=== PATIENT | female | born 1990 | race Caucasian/White ===

== ENCOUNTER → 2016-08-30 | Outpatient (REF) | payer OTHER ==
[~2016-08-30] MED LIST: ACET50TA PO; IBUP60TA PO
[2016-08-30 13:54] LABS: MEAN CORPUSCULAR HEMOGLOBIN 30.3 pg (27.0-33.0); MEAN CORPUSCULAR HGB CONC 34.7 g/dl (32.0-36.5); MEAN CORPUSCULAR VOLUME 87.4 fl (80.0-96.0); RED CELL DISTRIBUTION WIDTH 12.3 % (11.5-14.5); WHITE BLOOD COUNT 5.7 K/mm3 (4.0-10.0)
[2016-08-30 14:07] LABS: HCG, SERUM QUANTITATIVE 892 MIU/ML
[2016-08-30 14:23] LABS: CONTROL LINE INT CTR LINE PRESENT; HIV SCRN NEGATIVE (NEGATIVE); HIV SCRN1 NEGATIVE (NEGATIVE)
[2016-08-31 10:25] LABS: HEPATITIS B SURFACE ANTIBODY POSITIVE (POSITIVE)
[2016-08-31 10:28] LABS: HBsAg Prenatal NEGATIVE (NEGATIVE)
== END ==
LOC: M LAB REF 13:02
PROVIDERS: ATTEND Obstetrics & Gynecology
DX: O36.80X0 Pregnancy with inconclusive fetal viability, not applicable or unspecified (principal)

== ENCOUNTER → 2016-11-21 | Outpatient (REF) | payer OTHER | LOC: M LAB REF 17:19 | PROVIDERS: ATTEND Obstetrics & Gynecology | DX: Z31.430 Encounter of female for testing for genetic disease carrier status for procreative management (principal); Z3A.00 Weeks of gestation of pregnancy not specified ==

== ENCOUNTER → 2017-02-05 | Outpatient (CLI) | payer BC, OTHER ==
[~2017-02-05] MED LIST changes: +IBUP-1114 PO; +NORC1TAB4 PO; +PRENTAB9 PO
[2017-02-05 13:34] LABS: MEAN CORPUSCULAR HEMOGLOBIN 30.7 pg (27.0-33.0); MEAN CORPUSCULAR HGB CONC 34.7 g/dl (32.0-36.5); MEAN CORPUSCULAR VOLUME 88.3 fl (80.0-96.0); RED CELL DISTRIBUTION WIDTH 13.6 % (11.5-14.5); WHITE BLOOD COUNT 12.3 K/mm3 (4.0-10.0)
== END ==
LOC: M LAB 11:06
PROVIDERS: ATTEND Obstetrics & Gynecology
DX: Z34.82 Encounter for supervision of other normal pregnancy, second trimester (principal)

== ENCOUNTER 2017-04-01 05:06 | Inpatient (IN) | payer BC, OTHER ==
[2017-04-01] VITALS (18 sets, daily range): BP systolic 97–118; BP diastolic 52–80
[~2017-04-01] VITALS: Ht 165.1 cm; Wt 79.0 kg
[~2017-04-01 05:06] MED LIST changes: -IBUP-1114 PO; -NORC1TAB4 PO; -PRENTAB9 PO
[2017-04-01] MEDS ORDERED: PRENTAB9 PO (05:30)
[2017-04-01] MEDS: BETAMETHASONE SOLUSPAN 6MG/ML INJ 5ML (J0702) IM SCH (05:50)
[2017-04-01 06:23] LABS: MEAN CORPUSCULAR HEMOGLOBIN 30.9 pg (27.0-33.0); MEAN CORPUSCULAR HGB CONC 36.1 g/dl (32.0-36.5); MEAN CORPUSCULAR VOLUME 85.5 fl (80.0-96.0); WHITE BLOOD COUNT 10.4 K/mm3 (4.0-10.0)
[2017-04-01] MEDS ORDERED: LACTATED RINGER'S 1000 ML IV STA (09:34)
[2017-04-01 12:09] LABS: MEAN CORPUSCULAR HEMOGLOBIN 30.7 pg (27.0-33.0); MEAN CORPUSCULAR HGB CONC 35.5 g/dl (32.0-36.5); MEAN CORPUSCULAR VOLUME 86.4 fl (80.0-96.0); RED CELL DISTRIBUTION WIDTH 13.9 % (11.5-14.5); WHITE BLOOD COUNT 11.4 K/mm3 (4.0-10.0)
[2017-04-01] MEDS: LR 1,000 ML IV SCH (12:17)
[2017-04-02] VITALS (16 sets, daily range): BP systolic 85–123; BP diastolic 52–74
[2017-04-02] MEDS: BETAMETHASONE SOLUSPAN 6MG/ML INJ 5ML (J0702) IM SCH (05:42)
[2017-04-02] MEDS: LR 1,000 ML IV SCH ×2 (09:32→18:09)
[2017-04-02 11:22] LABS: BASO % 0.2 % (0.0-1.0); EOS % 0.2 % (0.0-3.0); LARGE UNSTAINED CELL # 0.1 K/mm3 (0.0-0.4); LARGE UNSTAINED CELL % 0.5 % (0.0-4.0); LYMPH # 1.2 K/mm3 (1.5-6.5); LYMPH % 6.8 % (24.0-44.0); MEAN CORPUSCULAR HEMOGLOBIN 30.4 pg (27.0-33.0); MEAN CORPUSCULAR HGB CONC 35.2 g/dl (32.0-36.5); MEAN CORPUSCULAR VOLUME 86.3 fl (80.0-96.0); MONO # 0.3 K/mm3 (0.0-0.8); MONO % 1.8 % (0.0-5.0); NEUTROPHILS # 14.5 K/mm3 (1.8-7.7); NEUTROPHILS % 90.5 % (36.0-66.0); PLATELET COUNT, AUTOMATED 133 k/mm3 (150-450); RED CELL DISTRIBUTION WIDTH 14.1 % (11.5-14.5)
[2017-04-02] MEDS ORDERED: BICITRA 30ML SOLN UDC PO ONE (14:15)
--- NOTE | 2017-04-02 15:11 | REP ---
OBSTETRIC SONOGRAPHY: HISTORY: Complete previa, question abruptio. For amniotic fluid assessment and estimated weight. FINDINGS: Scanning through the gravid uterus demonstrates a viable single intrauterine gestation in a cephalic lie. motion is observed, and heart rate is recorded at 139 beats per minute. Amniotic fluid is subjectively low. Amniotic fluid index is low as well at 4.8 cm (7.8 to 24.9 cm). No extrauterine abnormalities observed. The placenta is posterior and difficult to evaluate for previa due to advanced gestational age and low head. Per referring provider's request, the exam was not done transvaginally. No abruption is visible. The cervix could not be visualized due to low head position. Umbilical cord is seen draping across the shoulders. The following anatomic structures are identified today and felt to be unremarkable: cranium, cavum, lungs, four-chamber heart, right ventricular outflow tract view, diaphragm, left-sided stomach, three-vessel cord, kidneys and bladder, spine. The following additional anatomic structures are less than optimally seen: Choroid plexus, cerebellum and posterior fossa, face and profile, left ventricular cardiac outflow tract view, abdominal wall cord insertion, upper and lower extremities. BIOMETRY CHART: BPD 7.9 cm = 31 weeks 5 days Head circumference 30.1 cm = 33 weeks 3 days Abdominal circumference 32.9 cm = 36 weeks 6 days Femur length 7.0 cm = 36 weeks 1 day Humeral length 6.1 cm = 35 weeks 2 days HC/AC ratio 0.92 (0.93 to 1.12. Cephalic index normal 0.72. Estimated weight 2733 grams, 6 pounds 0 ounces, 54th percentile for 35 weeks 3 days. IMPRESSION: Viable single intrauterine gestation at 34 weeks 5 days by today's composite sonographic criteria. FABY by today's sonography 05/09/2017. cervix, lower uterine segment, and placenta less than optimally seen due to low head position. No abruption is seen. Difficult to evaluate for previa. Signed by Scott Nielsen MD 04/02/2017 04:36 P
[2017-04-02] MEDS ORDERED: ONDANSETRON 4MG/2ML VIAL (J2405) IV PRN ×3 (17:24→18:45)
[2017-04-02] MEDS ORDERED: NALOXONE INJ 0.4 MG/1 ML VIAL (J2310) IV PRN ×2 (17:24)
[2017-04-02] MEDS ORDERED: METOCLOPRAMIDE INJ 10MG/2ML VIAL (J2765) IV PRN (17:24)
[2017-04-02] MEDS ORDERED: NALBUPHINE HCL 10 MG/ML AMP (J2300) IV PRN ×2 (17:24→18:45)
[2017-04-02] MEDS ORDERED: MORPHINE PRES-FREE INJ 10 MG/10 ML VIAL (J2274) As Ordered ONE (17:28)
[2017-04-02] MEDS ORDERED: OXYTOCIN INJ 10 UNITS/ML VIAL (J2590) As Ordered ONE (17:28)
[2017-04-02] MEDS ORDERED: ONDANSETRON 4MG/2ML VIAL (J2405) As Ordered ONE (17:32)
[2017-04-02] MEDS ORDERED: PHENYLephrine HCL 500 MCG/5 ML (100MCG/ML) SYRINGE (J2370) As Ordered ONE (17:42)
[2017-04-02] MEDS ORDERED: KETOROLAC 60 MG/2 ML VIAL (J1885) As Ordered ONE (17:43)
[2017-04-02 17:58] LABS: CORD GAS HCO3 A 20.8 MEQ/L; CORD GAS O2 SAT A 49.5 %; CORD GAS PCO2 A 45.6 mmHg; CORD GAS PH A 7.278 UNITS; CORD GAS PO2 A 22.5 mmHg; CORD GAS SBC A 18.5 MEQ/L; CORD GAS TCO2 A 22.2 MEQ/L
[2017-04-02 18:00] LABS: CORD GAS ABE V -8.4; CORD GAS HCO3 V 16.2 MEQ/L; CORD GAS O2 SAT V 66.8 %; CORD GAS PCO2 V 31.8 mmHg; CORD GAS PH V 7.326 UNITS; CORD GAS PO2 V 27.2 mmHg; CORD GAS SBC V 17.2 MEQ/L; CORD GAS TCO2 V 17.2 MEQ/L
[2017-04-02] MEDS ORDERED: MEASLES,MUMPS,RUBELLA VACCINE INJ (MMR-II) (90707) SC SCH (18:15)
[2017-04-02] MEDS ORDERED: RHOGAM 300 MCG (1500 IU) INJ (J2790) IM SCH (18:15)
[2017-04-02] MEDS ORDERED: METHYLERGONOVINE MALEATE 0.2 MG TAB PO PRN (18:15)
[2017-04-02] MEDS ORDERED: NORCO, ANEXSIA 5/325MG TABLET (HYDROcodone/ACETAMINOPHEN) PO PRN (18:15)
[2017-04-02] MEDS ORDERED: DOCUSATE SODIUM 100 MG CAP PO PRN (18:15)
--- NOTE | 2017-04-02 18:38 | HPE ---
DATE OF ADMISSION: 04/02/2017 Joyce is a 26-year-old female 3, para 1-0-1-0 with an estimated date of confinement (EDC) of 05/05/2017, estimated gestational age (EGA) 35-2/7 weeks gestation with a longstanding history of complete placenta previa. She presented yesterday with acute bleeding, was monitored for the bleeding but given two doses of steroids. She continued to bleed. At this point, a decision was made for admission. Her record reviewed, essentially unremarkable other than the history of complete previa. No bleeding up until this admission. LAB: Blood type is B+, rubella immune, hepatitis negative, HIV negative, GC chlamydia negative. One-hour sugar testing was within normal limits. GBS status unknown. PAST MEDICAL HISTORY: Denies. PAST SURGICAL HISTORY: Ectopic times one. SOCIAL HISTORY: She is , lives with her . Denies any alcohol, drugs or cigarette smoking. REVIEW OF SYSTEMS: Unremarkable. OBSTETRICAL HISTORY: Full term vaginal delivery with from [facility] PHYSICAL EXAMINATION ON ADMISSION: HEENT: Grossly within normal limits. Abdomen: Soft, nontender, nondistended. Extremities: No clubbing, cyanosis or edema. Vaginal exam: Gross bleeding with a small clot coming out of vagina. No digital exam done. Tracing reviewed. Category one tracing with irregular contractions. ASSESSMENT: 1. Intrauterine at 35-2/7 weeks gestation. 2. History of complete placenta previa. 3. Acute bleeding. 4. Thrombocytopenia. PLAN: Admit the patient to labor and delivery, intravenous (IV) fluid hydration started, sequential labs sent. Will continue to monitor the patient. If her bleeding persists, will proceed with a primary section. Copy To: [facility]
[2017-04-02] MEDS ORDERED: fentaNYL 100 MCG/2 ML INJECTION (J3010) IV PRN (18:45)
[2017-04-02] MEDS ORDERED: MEPERIDINE INJ 25 MG/ML VIAL (J2175) IV PRN (18:45)
[2017-04-02] MEDS ORDERED: PERCOCET 5MG/325MG TAB PO PRN (18:45)
[2017-04-02] MEDS ORDERED: LR 1,000 ML IV SCH (18:45)
[2017-04-02] MEDS: KETOROLAC 30 MG/ML VIAL (J1885) IV SCH (21:08)
[2017-04-03] VITALS (7 sets, daily range): BP systolic 92–111; BP diastolic 57–71
[2017-04-03] MEDS: KETOROLAC 30 MG/ML VIAL (J1885) IV SCH ×4 (00:01→17:34)
[2017-04-03] MEDS: LR 1,000 ML IV SCH (02:28)
[2017-04-03 06:52] LABS: MEAN CORPUSCULAR HEMOGLOBIN 32.4 pg (27.0-33.0); MEAN CORPUSCULAR VOLUME 86.8 fl (80.0-96.0); RED CELL DISTRIBUTION WIDTH 13.8 % (11.5-14.5); WHITE BLOOD COUNT 14.6 K/mm3 (4.0-10.0)
[2017-04-03 06:56] LABS: MEAN CORPUSCULAR HGB CONC 36.5 g/dl (32.0-36.5)
[2017-04-03] MEDS: PRENATAL VITAMINS CHEWABLE TABLET PO SCH (07:29)
--- NOTE | 2017-04-03 08:19 | RO ---
DATE OF PROCEDURE: 04/02/2017 PREPROCEDURE DIAGNOSES: 1. Intrauterine at 35-2/7 weeks gestation. 2. Complete placenta previa. 3. Acute bleeding. 4. Oligohydramnios. 5. Thrombocytopenia. POSTPROCEDURE DIAGNOSES: 1. Intrauterine at 35-2/7 weeks gestation. 2. Complete placenta previa. 3. Acute bleeding. 4. Oligohydramnios. 5. Thrombocytopenia. 6. Nuchal cord times one. PROCEDURE: Primary low transverse section. SURGEON: Dr. Branden Scott. GEAR LAPPING MACHINE OPERATOR: Missy Maharaj. ANESTHESIA: Spinal. ESTIMATED BLOOD LOSS: COMPLICATION: None. Joyce is a 26-year-old female 3, para 0, para 1-0-1-0 who was admitted at 35-2/7 weeks gestation with acute bleeding with a diagnosis of complete placenta previa. She was found to have oligohydramnios on ultrasound as well as thrombocytopenia on labs. Given the above findings and the acute bleeding and the patient being status post two doses of steroids, decision was made to proceed with section. FINDINGS: Live male in occiput transverse position with nuchal cord times one. 9 and 9. weight 6 pounds 9 ounces. Normal appearing placenta previa noted covering the cervical os. Placenta was posterior. PROCEDURE: After obtaining informed consent, the patient was taken to the operating room where spinal anesthetic was found to be adequate. She was then draped and prepped in usual sterile fashion in supine position. At this point, Pfannenstiel incision was made. This was carried down to the fascia. Fascia was incised in midline fashion and carried through laterally. Superior aspect of the fascia was then grasped with Mau clamps, tented off and dissected off the rectus muscles sharply. The inferior aspect was dissected off in similar fashion. Rectus muscles in midline fashion. Perineum identified. Peritoneal cavity entered bluntly. Superior and inferior dissection of peritoneum was then done with good visualization of the bladder. At this point, a Mobius skin retractor was placed. A low-transverse uterine incision was made. was delivered in an atraumatic fashion. The nuchal cord was reduced. Infant was handed over to the waiting clothing manager. Cord blood and cord gas were sent. Placenta removed manually. Uterus cleared of all clot and debris and uterine incision was then repaired in two separate layers of #0 Vicryl sutures. Pelvis copiously irrigated with normal saline and suctioned out. Attention turned to the peritoneum which was closed in running fashion using #2-0 Vicryl. All superficial bleeders coagulated. Fascia closed in two separate segment of #0 Vicryl sutures. The skin was reapproximated in subcuticular fashion using #3-0 Vicryl and a Daniel. Steri-Strips placed. The patient tolerated the procedure well. She was then transferred to recovery room in stable condition.
[2017-04-03] MEDS: NORCO, ANEXSIA 5/325MG TABLET (HYDROcodone/ACETAMINOPHEN) PO PRN (09:29)
[2017-04-04] MEDS: IBUPROFEN 800 MG TAB PO SCH ×3 (02:44→18:12)
[2017-04-04 06:26] VITALS: BP 99/61
[2017-04-04] MEDS ORDERED: INFLUENZA QUADRIVALENT PF VACCINE 0.5ML SYRINGE (90686) IM ONE (09:00)
[2017-04-04] MEDS: PRENATAL VITAMINS CHEWABLE TABLET PO SCH (09:30)
[2017-04-04 18:39] VITALS: BP 103/82
[2017-04-05] MEDS: IBUPROFEN 800 MG TAB PO SCH ×2 (02:15→09:39)
[2017-04-05] MEDS: NORCO, ANEXSIA 5/325MG TABLET (HYDROcodone/ACETAMINOPHEN) PO PRN (05:56)
[2017-04-05 05:58] VITALS: BP 106/69
[2017-04-05] MEDS: PRENATAL VITAMINS CHEWABLE TABLET PO SCH (08:30)
[2017-04-05] MEDS ORDERED: NORC1TAB4 PO (09:23)
[2017-04-05] MEDS ORDERED: IBUP-1114 PO (09:23)
[2017-04-05] MEDS ORDERED: PRENTAB9 PO (09:23)
--- NOTE | 2017-04-05 11:25 | DS.PDOC ---
Discharge Summary General Date of Admission Apr 01, 2017 at 09:34 Date of Discharge April 05, 2017. Attending Physician: Branden Scott DO Discharge Summary PROCEDURES PERFORMED DURING STAY: Primary low transverse section. ADMITTING DIAGNOSES: 1. IUP at 35.2 weeks gestation. 2. Complete previa. 3. Acute bleeding. 4. Oligohydramnios 5. Thrombocytopenia DISCHARGE DIAGNOSES: 1. Day 3 postoperative COMPLICATIONS/CHIEF COMPLAINT: Bleeding. HISTORY OF PRESENT ILLNESS: Patient is a 26 year old female who is now a . She has had good care and initiated her care in the first trimester of her . Her has been complicated by a complete previa. She was admitted into the hospital with acute vaginal bleeding. It was noted while patient was admitted that she had thrombocytopenia and oligohydramnios. She received 2 doses of betamethasone for lung maturity. Due to patient's status the decision was made to proceed with the planned section. DISCHARGE MEDICATIONS: Please see below. ALLERGIES: Please see below. PHYSICAL EXAMINATION ON DISCHARGE: VITAL SIGNS: Please see below. GENERAL: Alert and oriented times 3 RESPIRATORY EXAMINATION: Regular rate and rhythm. No use of accessory muscles. ABDOMINAL EXAMINATION: Low transverse incision is approximated. No erythema or drainage noted. EXTREMITIES: No pitting edema bilateral lower legs or feet. Perineum: Scant dark red bleeding. LABORATORY DATA: Please see below. ACTIVITY: As tolerated. Pelvic rest. No heavy lifting. DIET: Regular DISCHARGE INSTRUCTIONS: 1. Discharge to home. Follow up in 2 weeks for an incision check and 6 weeks . 2. Education done on signs and symptoms of mastitis, endometritis, hemorrhage, DVT, pulmonary embolism, infection at the incisional site, fever, depression and psychosis. 3. Education done on pain management, incisional care, and pelvic rest. Script sent for Percocet to pharmacy. Continue with PNV. DISCHARGE CONDITION: Stable. Vital Signs/I&Os Vital Signs Date Time Temp Pulse Resp B/P (MAP) Pulse Ox O2 Delivery O2 Flow Rate FiO2 04/05/17 07:19 16 Room Air 04/05/17 05:58 97.9 59 106/69 (81) 04/03/17 22:18 96 Discharge Medications Scheduled Multivitamins/ ( 27-0.8 mg) 1 Tab Tab, 1 TAB PO DAILY, (Reported ) Scheduled PRN Acetaminophen/Hydrocodone (Post 5-325 mg) 1 Tab Tab, 1 TAB PO Q4HP PRN for PAIN SCALE 1-5, (Reported) Ibuprofen (Ibuprofen) 400 Mg Tab, 800 MG PO Q8HP PRN for PAIN, (Reported) Allergies Coded Allergies: No Known Allergies (Unverified , 11/22/15) KEYLA BLANC CNM Apr 05, 2017 11:25
== END 2017-04-05 16:10 | disposition home or self-care (01) | DRG 540 ==
LOC: M LDO 05:06 → M LDI 09:34 → M OBS 04-02 20:29
PROVIDERS: ADMIT Obstetrics & Gynecology; ATTEND Obstetrics & Gynecology
PROC: 10D00Z1 Extraction of Products of Conception, Low, Open Approach (ICD-10-PCS; principal; 2017-04-02 17:16)
DX: O44.13 Complete placenta previa with hemorrhage, third trimester (principal); D69.6 Thrombocytopenia, unspecified; O41.03X0 Oligohydramnios, third trimester, not applicable or unspecified; O99.12 Other diseases of the blood and blood-forming organs and certain disorders involving the immune mechanism complicating childbirth; Z3A.35 35 weeks gestation of pregnancy; Z37.0 Single live birth; O69.82X0 Labor and delivery complicated by other cord entanglement, without compression, not applicable or unspecified

== ENCOUNTER 2019-05-05 20:16 | Day surgery (SDC) | payer BC, OTHER ==
[~2019-05-05] VITALS: Ht 165.1 cm; Wt 65.9 kg
[~2019-05-05 20:16] MED LIST changes: -ACET50TA PO; +IBUP-1114 PO; +IBUP600T42 PO; -IBUP60TA PO; +MAPA500T2 PO; +NORC1TAB7 PO; +PRENTAB9 PO
[2019-05-05] MEDS ORDERED: CLAR10CA3 PO (20:20)
[2019-05-05] MEDS ORDERED: FOLI1TAB11 PO (20:20)
[2019-05-05 20:49] LABS: BASO # 0.1 10^3/uL (0.0-0.2); BASO % 0.6 % (0.0-1.0); EOS # 0.1 10^3/uL (0.0-0.5); EOS % 0.9 % (0.0-3.0); HEMATOCRIT 40.6 % (36.0-47.0); HEMOGLOBIN 14.1 g/dl (12.0-15.5); LYMPH # 2.9 10^3/uL (1.5-5.0); LYMPH % 36.4 % (24.0-44.0); MEAN CORPUSCULAR HEMOGLOBIN 30.4 pg (27.0-33.0); MEAN CORPUSCULAR HGB CONC 34.7 g/dl (32.0-36.5); MEAN CORPUSCULAR VOLUME 87.5 fl (80.0-96.0); MONO # 0.8 10^3/uL (0.0-0.8); MONO % 10.6 % (0.0-5.0); NEUTROPHILS % 51.1 % (36.0-66.0); PLATELET COUNT, AUTOMATED 235 10^3/uL (150-450); RED BLOOD COUNT 4.64 10^6/uL (4.00-5.40); WHITE BLOOD COUNT 7.8 10^3/uL (4.0-10.0)
[2019-05-05 21:29] LABS: BLOOD UREA NITROGEN 8 MG/DL (7-18); CARBON DIOXIDE LEVEL 28 MEQ/L (21-32); CHLORIDE LEVEL 106 MEQ/L (98-107); CREATININE FOR GFR 0.77 MG/DL (0.55-1.30); GLOMERULAR FILTRATION RATE > 60.0 (>60); GLUCOSE, FASTING 96 MG/DL (70-100); HCG, SERUM QUANTITATIVE 12910 MIU/ML; POTASSIUM SERUM 4.7 MEQ/L (3.5-5.1); SODIUM LEVEL 139 MEQ/L (136-145)
[2019-05-05] MEDS ORDERED: NS 1,000 ML IV ONE (22:00)
[2019-05-05] MEDS ORDERED: MORPHINE 4 MG/ML 1ML VIAL/SYRINGE (J2270) IV ONE (22:00)
--- NOTE | 2019-05-05 22:29 | REPVR ---
PROCEDURE INFORMATION: Exam: US First Trimester, Transabdominal and US , Transvaginal Exam date and time: 05/05/2019 9:45 PM Clinical history: 29 years old, female; complicated by abdominal or pelvic pain; Right lower quadrant; First trimester; Gestational age or lmp: 03/27/19; ; Additional info: Right-sided abdominal pain, 5 weeks , HX of ectopic TECHNIQUE: Imaging protocol: Real-time transabdominal obstetrical ultrasound of the maternal pelvis and a first trimester , less than 14 weeks 0 days, with image documentation. Transvaginal imaging was used for better evaluation of the fetus and adnexa. COMPARISON: No relevant prior studies available. FINDINGS: GESTATION: Gestation: Examination demonstrates 2 gestational sacs, once a containing fetus A is located in the uterine fundus. Second sac containing fetus B is located in the right cornual or within the fallopian tube. Heart rate: Heart rate for fetus B. is 114 beats per minute. Heart rate for fetus A is 107 beats per minute. Placenta: Unremarkable. No subchorionic bleed. Amniotic fluid: Amniotic and chorionic fluid are normal for gestational age. BIOMETRY: Estimated gestational age: fetus B demonstrates a rump length of 4.1 mm corresponding to a gestational age of 6 weeks 1 day. fetus A demonstrates a crown-rump length of 2.9 mm corresponding to a gestational age of 5 weeks 6 days. MATERNAL: Uterus: Unremarkable. Cervix: Unremarkable. Right adnexa: Unremarkable. Left adnexa: Unremarkable. Intraperitoneal: No intraperitoneal free fluid. IMPRESSION: 2 gestational sacs demonstrated as described above, one located in the uterus and the second either in the right cornual region or fallopian tube. Gestational age ranges between 5 weeks 6 days and 6 weeks 1 day. Mild discrepancy in heart rates as described above. A critical call has been made to speak with the ordering physician/practitioner. This report will be amended once consultation has occurred. Electronically signed by: Isidro Anderson On 05/05/2019 22:28:38 PM
[2019-05-05] MEDS ORDERED: ONDANSETRON 4MG/2ML VIAL (J2405) IV ONE (23:00)
[2019-05-05] MEDS ORDERED: PERCOCET 5MG/325MG TAB PO ONE (23:00)
[2019-05-06] MEDS ORDERED: METHYLENE BLUE 0.5% (5MG/ML) 10 ML AMP (PROVAYBLUE)(Q9968 PER 1MG) As Ordered ONE (00:35)
[2019-05-06] MEDS ORDERED: BUPIVACAINE/EPIN 0.25% 30 ML VIAL As Ordered ONE (00:35)
[2019-05-06] MEDS ORDERED: ROCURONIUM BROMIDE 50 MG/5 ML VIAL As Ordered ONE (01:11)
[2019-05-06] MEDS ORDERED: ceFAZolin 2 GM/D5W 50 ML IV BAG (J0690 PER 500MG) As Ordered ONE (01:11)
[2019-05-06] MEDS ORDERED: dexameTHASONE 4 MG/ML 1ML VIAL (J1100) As Ordered ONE (01:11)
[2019-05-06] MEDS ORDERED: LIDOCAINE 2% INJ 100 MG/5 ML SDV (FOR ANES.) As Ordered ONE (01:11)
[2019-05-06] MEDS ORDERED: SUCCINYLCHOLINE 100 MG/5 ML SYRINGE (J0330) As Ordered ONE (01:11)
[2019-05-06] MEDS ORDERED: fentaNYL 100 MCG/2 ML INJECTION (J3010) As Ordered ONE ×2 (01:11→01:57)
[2019-05-06] MEDS ORDERED: PHENYLephrine HCL 500 MCG/5 ML (100MCG/ML) SYRINGE (J2370) As Ordered ONE ×2 (01:11→02:19)
[2019-05-06] MEDS ORDERED: PROPOFOL 200 MG/20 ML VIAL As Ordered ONE (01:11)
[2019-05-06] MEDS ORDERED: ONDANSETRON 4MG/2ML VIAL (J2405) As Ordered ONE (01:11)
[2019-05-06] MEDS ORDERED: SUGAMMADEX SODIUM 500 MG/5 ML VIAL (BRIDION) As Ordered ONE (01:42)
[2019-05-06] MEDS ORDERED: KETOROLAC 60 MG/2 ML VIAL (J1885) As Ordered ONE (01:42)
[2019-05-06] MEDS ORDERED: IBUP80TA PO (03:00)
[2019-05-06] MEDS ORDERED: PERC5TAB12 PO (03:00)
[2019-05-06 03:07] LABS: HEMATOCRIT 26.6 % (36.0-47.0); MEAN CORPUSCULAR HEMOGLOBIN 31.2 pg (27.0-33.0); MEAN CORPUSCULAR HGB CONC 34.6 g/dl (32.0-36.5); MEAN CORPUSCULAR VOLUME 90.2 fl (80.0-96.0); PLATELET COUNT, AUTOMATED 202 10^3/uL (150-450); RED BLOOD COUNT 2.95 10^6/uL (4.00-5.40); WHITE BLOOD COUNT 15.4 10^3/uL (4.0-10.0)
[2019-05-06] MEDS ORDERED: oxyCODONE 5MG TAB As Ordered ONE (03:07)
[2019-05-06 03:10] LABS: HEMOGLOBIN 9.2 g/dl (12.0-15.5)
[2019-05-06] MEDS ORDERED: LR 1,000 ML IV SCH ×3 (03:15→11:15)
[2019-05-06] MEDS ORDERED: ONDANSETRON 4MG/2ML VIAL (J2405) IV PRN (03:30)
[2019-05-06] MEDS ORDERED: MEPERIDINE INJ 25 MG/ML VIAL (J2175) IV PRN (03:30)
[2019-05-06] MEDS ORDERED: oxyCODONE 5MG TAB PO PRN (03:30)
[2019-05-06] MEDS ORDERED: fentaNYL 100 MCG/2 ML INJECTION (J3010) IV PRN (03:30)
[2019-05-06 03:45] VITALS: BP 113/65
[2019-05-06] MEDS: PERCOCET 5MG/325MG TAB PO PRN ×2 (04:06→09:20)
[2019-05-06 04:15] VITALS: BP 109/65
[2019-05-06 04:45] VITALS: BP 97/63
[2019-05-06] MEDS: IBUPROFEN 800 MG TAB PO SCH ×2 (05:30→11:47)
[2019-05-06] MEDS: SIMETHICONE 80 MG CHEW TAB PO SCH ×2 (05:30→11:47)
[2019-05-06 05:45] VITALS: BP 97/62
[2019-05-06 06:00] VITALS: BP 95/61
[2019-05-06] MEDS ORDERED: IBUPROFEN 800 MG TAB PO SCH (11:15)
[2019-05-06] MEDS ORDERED: SIMETHICONE 80 MG CHEW TAB PO SCH (11:15)
[2019-05-06] MEDS ORDERED: PERCOCET 5MG/325MG TAB PO PRN (11:15)
--- NOTE | 2019-05-06 13:06 | RO ---
DATE OF PROCEDURE: 05/06/2019 Ale is a 29-year-old female who presented to the emergency room with severe abdominal pain. She was found to have twin gestation in a right cornual ectopic. At this point, a decision was made to proceed with surgery. She had a prior history of an ectopic on the right, which was removed and a prior section. PREOPERATIVE DIAGNOSES: 1. Acute abdomen. 2. Right ectopic , twin gestation with heart rate in the 115 and 114. POSTPROCEDURE DIAGNOSES: 1. Acute abdomen. 2. Right ectopic , twin gestation with heart rate in the 115 and 114. 3. Ruptured right cornual ectopic . No fallopian tube noted on the right. The ovary was intact. The left and fallopian tube as well as the ovary were found to be normal. 1500 mL of hemoperitoneum. PROCEDURE: 1. Operative laparoscopy. 2. Removal of right cornual ectopic . 3. Evacuation of 1500 of hemoperitoneum. SURGEON: Dr. Scott MACHINE FARMWORKER: ANESTHESIA: General. ESTIMATED BLOOD LOSS: Intraoperative 100 mL. SPECIMEN SENT TO THE LAB: Segments of right cornual area, as well as ectopic . DESCRIPTION OF PROCEDURE: After obtaining informed consent, the patient was taken to the operating room where general anesthetic was found to be adequate. She was then draped and prepped in the usual sterile fashion in the dorsal lithotomy position. At this point, a sponge stick was placed in the vagina for uterine manipulation. We then turned our attention to the abdomen where 10 mm infraumbilical incision was made. Using the Veress needle, the abdomen was insufflated with CO2 gas to approximately 3.5 liters. At this point, 11 mm trocar was inserted under direct visualization and then an 11-mm port was placed on the right. The second trocar was placed. Upon evaluation of the abdomen and pelvis, a lot of old clotted blood was noted, which was evacuated using the suction director of vendor management. We were then able to identify the ectopic on the right cornual area, which was found to be grossly ruptured and bleeding. At this point, using the YUDY Harmonic scalpel, I was able to control the bleeding and remove the segment of the fallopian tube that was left from the cornual area. Pelvis was then copiously irrigated with normal saline. Good hemostasis noted. We used approximately 3400 mL of normal saline to dilute the blood that was there and suction out. After full evacuation of the hemoperitoneum, the area was then gained inspected. No evidence of any other bleeding or injuries noted. The left fallopian tube, as well as the ovary appeared to be within normal limits. No evidence of any fimbriated end of the tube noted. At this point, all instruments were removed. The laparoscopic ports were closed using 0 Vicryl in the fascia and Dermabond in the skin. 0.25% Marcaine was placed for postoperative pain. The patient tolerated procedure well. She was then transferred to recovery room in stable condition.
== END 2019-05-06 15:14 | disposition home or self-care (01) ==
LOC: M ED 20:16 → M SDC 23:59 → M MS5PR 05-06 03:40 → M SDC 05-06 15:14
PROVIDERS: ATTEND Obstetrics & Gynecology
DX: O00.90 Unspecified ectopic pregnancy without intrauterine pregnancy (principal)
CPT/HCPCS: 36415; 59150; 76801; 76802; 76817; 80048; 81001; 84702; 85025; 85027; 86850; 86900; 86901; 88305; 93976; 96361; 96374; 96375; 99284; J0330; J0690; J1100; J1885; J2270; J2370; J2405; J3010

== ENCOUNTER → 2019-05-12 | Outpatient (REF) | payer OTHER ==
[~2019-05-12] MED LIST changes: +CLAR10CA3 PO; +FOLI1TAB11 PO; +IBUP80TA PO; +PERC5TAB12 PO
== END ==
LOC: M LAB REF 12:18
PROVIDERS: ATTEND Obstetrics & Gynecology
DX: Z09 Encounter for follow-up examination after completed treatment for conditions other than malignant neoplasm (principal)

== ENCOUNTER → 2019-05-26 | Outpatient (REF) | payer OTHER | LOC: M LAB REF 12:21 | PROVIDERS: ATTEND Obstetrics & Gynecology | DX: O00.80 Other ectopic pregnancy without intrauterine pregnancy (principal); Z3A.00 Weeks of gestation of pregnancy not specified ==

== ENCOUNTER → 2019-08-03 | Outpatient (CLI) | payer BC, OTHER ==
--- NOTE | 2019-08-03 19:53 | REP ---
Clinical: Periumbilical pain. Technique: Real time cross scale and color evaluation using linear high frequency transducer. Findings: Directed ultrasound examination in the periumbilical region demonstrates no obvious hernia, fluid collection, or mass lesion. Impression: No hernia identified. No obvious abnormality by ultrasound. Electronically Signed by Amilcar Ta MD 08/03/2019 07:44 P
== END ==
LOC: M RAD 10:02
PROVIDERS: ATTEND Physician Assistant Medical
DX: R10.32 Left lower quadrant pain (principal)

== ENCOUNTER 2020-05-02 17:19 | Emergency (ER) | payer BC, OTHER ==
[~2020-05-02] VITALS: Ht 165.1 cm; Wt 67.0 kg
[2020-05-02 20:57] LABS: BASO # 0.1 10^3/uL (0.0-0.2); BASO % 0.6 % (0.0-1.0); EOS # 0.2 10^3/uL (0.0-0.5); EOS % 1.5 % (0.0-3.0); HEMATOCRIT 45.2 % (36.0-47.0); HEMOGLOBIN 15.6 g/dl (12.0-15.5); LYMPH # 3.3 10^3/uL (1.5-5.0); LYMPH % 32.7 % (24.0-44.0); MEAN CORPUSCULAR HEMOGLOBIN 30.3 pg (27.0-33.0); MEAN CORPUSCULAR HGB CONC 34.5 g/dl (32.0-36.5); MEAN CORPUSCULAR VOLUME 87.8 fl (80.0-96.0); MONO # 0.7 10^3/uL (0.0-0.8); MONO % 6.6 % (0.0-5.0); NEUTROPHILS # 5.9 10^3/uL (1.5-8.5); PLATELET COUNT, AUTOMATED 272 10^3/uL (150-450); RED BLOOD COUNT 5.15 10^6/uL (4.00-5.40); WHITE BLOOD COUNT 10.1 10^3/uL (4.0-10.0)
[2020-05-02 22:15] VITALS: BP 120/86
--- NOTE | 2020-05-02 22:30 | REPVR ---
PROCEDURE INFORMATION: Exam: US First Trimester, Transabdominal and US , Transvaginal Exam date and time: 05/02/2020 9:54 PM Age: 29 years old Clinical indication: complicated by abdominal or pelvic pain; Left lower quadrant; First trimester; Gestational age or lmp: 03/28/20; ; Additional info: 5 wks preg. Llq pain worse today, HX R ruptured ectopic TECHNIQUE: Imaging protocol: Real-time transabdominal obstetrical ultrasound of the maternal pelvis and a first trimester , less than 14 weeks 0 days, with image documentation. Transvaginal imaging was used for better evaluation of the fetus and adnexa. COMPARISON: US OBS SINGEL GEST 2017-04-02 08:46 FINDINGS: Gestation: Gestational sac appears located within the right uterine cornu. Mean gestational sac diameter 6.3 mm. No pole visualized at this present. Embryonic/ heart rate: Not applicable Placenta: Unremarkable. Amniotic fluid: Not applicable BIOMETRY: Gestational age (AUA): Gestational age 5 weeks and 2 days. Estimated due date (AUA): Estimated due date 12/31/2020. MATERNAL: Uterus: Thickened endometrium measuring 2.4 cm. Fluid within the thickened uterine endometrium, without fluid measures 17 mm. Cervix: Unremarkable. Right adnexa: Unremarkable right ovary. Left adnexa: Left ovary appears to contain a 1 cm corpus luteal cyst. Otherwise unremarkable. Intraperitoneal space: No intraperitoneal free fluid. IMPRESSION: Early right coronal ectopic without rupture. No cardiac activity at present or visualized embryo. Electronically signed by: Vini Kelly On 05/02/2020 22:29:53 PM
== END 2020-05-02 22:57 | disposition home or self-care (01) ==
LOC: M ED 17:19
DX: O26.899 Other specified pregnancy related conditions, unspecified trimester (principal); O00.90 Unspecified ectopic pregnancy without intrauterine pregnancy; Z87.59 Personal history of other complications of pregnancy, childbirth and the puerperium; Z3A.01 Less than 8 weeks gestation of pregnancy

== ENCOUNTER 2020-05-06 11:44 | Emergency (ER) | payer BC, OTHER ==
[~2020-05-06] VITALS: Ht 165.1 cm; Wt 67.9 kg
[~2020-05-06 11:44] MED LIST changes: -ACET-683 PO
[2020-05-06 12:24] LABS: BASO # 0.1 10^3/uL (0.0-0.2); BASO % 0.6 % (0.0-1.0); EOS # 0.2 10^3/uL (0.0-0.5); EOS % 2.3 % (0.0-3.0); HEMATOCRIT 44.5 % (36.0-47.0); HEMOGLOBIN 15.3 g/dl (12.0-15.5); LYMPH # 2.6 10^3/uL (1.5-5.0); LYMPH % 30.6 % (24.0-44.0); MEAN CORPUSCULAR HEMOGLOBIN 30.2 pg (27.0-33.0); MEAN CORPUSCULAR HGB CONC 34.4 g/dl (32.0-36.5); MEAN CORPUSCULAR VOLUME 87.9 fl (80.0-96.0); MONO # 0.6 10^3/uL (0.0-0.8); NEUTROPHILS # 4.9 10^3/uL (1.5-8.5); NEUTROPHILS % 58.9 % (36.0-66.0); PLATELET COUNT, AUTOMATED 264 10^3/uL (150-450); RED BLOOD COUNT 5.06 10^6/uL (4.00-5.40); WHITE BLOOD COUNT 8.3 10^3/uL (4.0-10.0)
[2020-05-06 13:15] LABS: HCG, SERUM QUANTITATIVE 6429 MIU/ML
[2020-05-06 13:38] LABS: INR 0.93; PROTHROMBIN TIME 12.7 SECONDS (12.5-14.3)
[2020-05-06 13:46] LABS: BLOOD UREA NITROGEN 7 MG/DL (7-18); CALCIUM LEVEL 9.4 MG/DL (8.5-10.1); CARBON DIOXIDE LEVEL 25 MEQ/L (21-32); CHLORIDE LEVEL 110 MEQ/L (98-107); GLOMERULAR FILTRATION RATE > 60.0 (>60); GLUCOSE, FASTING 89 MG/DL (70-100); SODIUM LEVEL 140 MEQ/L (136-145)
[2020-05-06 13:47] LABS: ALBUMIN 4.2 GM/DL (3.2-5.2); ALT/SGPT 26 U/L (12-78); BILIRUBIN,TOTAL 0.6 MG/DL (0.2-1.0); TOTAL PROTEIN 7.6 GM/DL (6.4-8.2)
[2020-05-06] MEDS ORDERED: METHOTREXATE 50MG/2ML VIAL (J9260 PER 50MG) IM ONE (14:15)
[2020-05-06 17:12] VITALS: BP 132/77
== END 2020-05-06 17:14 | disposition home or self-care (01) ==
LOC: M ED 11:44
DX: O00.90 Unspecified ectopic pregnancy without intrauterine pregnancy (principal)
CPT/HCPCS: 80053; 84702; 85025; 85610; 86850; 86900; 86901; 96372; 99284; J9260

== ENCOUNTER → 2020-05-06 | Outpatient (CLI) | payer BC, OTHER ==
[~2020-05-06] MED LIST changes: +ACET-683 PO
--- NOTE | 2020-05-06 11:15 | REPVR ---
PROCEDURE INFORMATION: Exam: US First Trimester, Transabdominal and US , Transvaginal Exam date and time: 05/06/2020 10:29 AM Age: 30 years old Clinical indication: Other: Pelvic pain RT; Gestational age or lmp: 5-6wks; ; Additional info: w/inconclusive viability TECHNIQUE: Imaging protocol: Real-time transabdominal obstetrical ultrasound of the maternal pelvis and a first trimester , less than 14 weeks 0 days, with image documentation. Transvaginal imaging was used for better evaluation of the fetus and adnexa. COMPARISON: US OB 05/02/2020 9:39 PM FINDINGS: Gestation: Right cornual ectopic measuring 1.9 x 1.8 x 1.8 cm transabdominally, 1.6 x 1.3 x 1.8 cm transvaginally, containing a 6 week 0 day embryo. . Surrounding myometrial thickness measures from imperceptible up to 4 mm (series 1, image 53) Embryonic/ heart rate: 111 bpm. Placenta: Unremarkable. No subchorionic bleed. Amniotic fluid: Amniotic fluid is normal for gestational age. BIOMETRY: Gestational age (AUA): 6 weeks 0 day (crown-rump length). MATERNAL: Uterus: Uterus 9.4 x 3.9 x 5.1 cm transabdominally, 7.6 x 3.9 x 5.9 cm transvaginally. Anterior uterine probable Caesarean section scar. Endometrium 2.1 cm. Cervix: Unremarkable. Right adnexa: Right ovary 2.1 x 1.4 x 1.3 cm, unremarkable, normal color and pulsed Doppler blood flow. Left adnexa: Left ovary partially obscured transabdominally. 2.8 x 2.3 x 2.3 cm with 1.8 cm corpus luteum transvaginally. Normal color and pulsed Doppler blood flow. Intraperitoneal space: No intraperitoneal free fluid. IMPRESSION: Right cornual ectopic . No specific evidence of rupture; interval severe surrounding myometrial thinning. Electronically signed by: Travis Raya On 05/06/2020 11:14:39 AM
== END ==
LOC: M RAD 09:59
PROVIDERS: ATTEND Obstetrics & Gynecology
DX: O00.80 Other ectopic pregnancy without intrauterine pregnancy (principal); Z3A.01 Less than 8 weeks gestation of pregnancy

== ENCOUNTER 2020-05-16 09:04 | Emergency (ER) | payer BC, OTHER ==
[~2020-05-16] VITALS: Ht 165.1 cm; Wt 70.3 kg
[2020-05-16] MEDS ORDERED: NS 1,000 ML IV ONE (10:00)
--- NOTE | 2020-05-16 10:57 | REPVR ---
PROCEDURE INFORMATION: Exam: US First Trimester, Transabdominal and US , Transvaginal Exam date and time: 05/16/2020 10:36 AM Age: 30 years old Clinical indication: Condition or disease; Lmp or gestational age (weeks): 6; Other: Ectopic; 5th ; ; Additional info: Reassess ectopic--pelvic pain, vaginal bleeding TECHNIQUE: Imaging protocol: Real-time transabdominal obstetrical ultrasound of the maternal pelvis and a first trimester , less than 14 weeks 0 days, with image documentation. Transvaginal imaging was used for better evaluation of the fetus, adnexa, and/or cervix. COMPARISON: 1ST TRIMESTER US 05/06/2020 10:22 AM FINDINGS: Gestation: Redemonstration of an ectopic within the right uterine cornua. This measures 2.3 x 2.0 x 2.3 cm. Single gestational sac. Single pole. Embryonic/ heart rate: No detected heart tones. Placenta: Unremarkable. No subchorionic bleed. Amniotic fluid: Amniotic fluid is normal for gestational age. BIOMETRY: Gestational age (AUA): Pierpont-rump length measures 5 mm, compatible with a gestational age of 6 weeks and 2 days. MATERNAL: Uterus: Uterus measures 3.4 x 8.3 x 7.4 cm. scar within the ventral myometrium. Cervix: Unremarkable. Right adnexa: Normal-appearing right ovary. Positive blood flow. Left adnexa: 1.8 cm left ovarian corpus luteum cyst. Positive left ovarian blood flow. Intraperitoneal space: Small amount of anechoic simple free fluid within the pelvic cul-de-sac. IMPRESSION: Redemonstration of a right uterine cornuate ectopic . No evidence of rupture. heart tones are no longer detected. Electronically signed by: Rosenda Russell On 05/16/2020 10:57:54 AM
[2020-05-16 11:14] LABS: BASO % 0.3 % (0.0-1.0); EOS # 0.2 10^3/uL (0.0-0.5); EOS % 1.7 % (0.0-3.0); HEMATOCRIT 42.2 % (36.0-47.0); HEMOGLOBIN 14.1 g/dl (12.0-15.5); LYMPH # 1.6 10^3/uL (1.5-5.0); LYMPH % 17.2 % (24.0-44.0); MEAN CORPUSCULAR HEMOGLOBIN 29.6 pg (27.0-33.0); MEAN CORPUSCULAR HGB CONC 33.4 g/dl (32.0-36.5); MEAN CORPUSCULAR VOLUME 88.5 fl (80.0-96.0); MONO # 0.5 10^3/uL (0.0-0.8); MONO % 5.5 % (0.0-5.0); NEUTROPHILS # 6.7 10^3/uL (1.5-8.5); NEUTROPHILS % 74.7 % (36.0-66.0); PLATELET COUNT, AUTOMATED 235 10^3/uL (150-450); RED BLOOD COUNT 4.77 10^6/uL (4.00-5.40)
[2020-05-16 12:18] VITALS: BP 119/71
[2020-05-16] MEDS ORDERED: ACET-683 PO (15:22)
[2020-05-16] MEDS ORDERED: PERC5TAB12 PO (17:56)
[2020-05-16] MEDS ORDERED: fentaNYL 100 MCG/2 ML INJECTION (J3010) As Ordered ONE (17:58)
== END 2020-05-16 12:31 | disposition home or self-care (01) ==
LOC: M ED 09:04
DX: O00.80 Other ectopic pregnancy without intrauterine pregnancy (principal); O34.81 Maternal care for other abnormalities of pelvic organs, first trimester; Z3A.01 Less than 8 weeks gestation of pregnancy

== ENCOUNTER 2020-05-16 13:22 | Day surgery (SDC) | payer BC, OTHER ==
[~2020-05-16] VITALS: Ht 165.1 cm; Wt 69.6 kg
[2020-05-16] MEDS ORDERED: ONDANSETRON 4MG/2ML VIAL IV ONE (13:45)
[2020-05-16] MEDS ORDERED: MORPHINE 2 MG/ML 1ML VIAL (J2270) IV PRN (13:45)
[2020-05-16] MEDS ORDERED: NS 1,000 ML IV ONE (13:45)
[2020-05-16 14:08] LABS: BASO % 0.2 % (0.0-1.0); EOS # 0.1 10^3/uL (0.0-0.5); EOS % 1.5 % (0.0-3.0); HEMATOCRIT 41.3 % (36.0-47.0); HEMOGLOBIN 14.1 g/dl (12.0-15.5); LYMPH # 2.3 10^3/uL (1.5-5.0); MEAN CORPUSCULAR HEMOGLOBIN 30.4 pg (27.0-33.0); MEAN CORPUSCULAR HGB CONC 34.1 g/dl (32.0-36.5); MONO # 0.5 10^3/uL (0.0-0.8); MONO % 5.6 % (0.0-5.0); NEUTROPHILS # 5.8 10^3/uL (1.5-8.5); NEUTROPHILS % 66.2 % (36.0-66.0); PLATELET COUNT, AUTOMATED 259 10^3/uL (150-450); RED BLOOD COUNT 4.64 10^6/uL (4.00-5.40); WHITE BLOOD COUNT 8.7 10^3/uL (4.0-10.0)
[2020-05-16 14:29] LABS: ALBUMIN 3.9 GM/DL (3.2-5.2); ALT/SGPT 25 U/L (12-78); BILIRUBIN,DIRECT 0.2 MG/DL (0.0-0.2); BILIRUBIN,TOTAL 1.2 MG/DL (0.2-1.0); BLOOD UREA NITROGEN 5 MG/DL (7-18); CALCIUM LEVEL 8.8 MG/DL (8.5-10.1); CARBON DIOXIDE LEVEL 26 MEQ/L (21-32); CHLORIDE LEVEL 110 MEQ/L (98-107); CREATININE FOR GFR 0.65 MG/DL (0.55-1.30); GLOMERULAR FILTRATION RATE > 60.0 (>60); GLUCOSE, FASTING 117 MG/DL (70-100); LIPASE 99 U/L (73-393); POTASSIUM SERUM 3.6 MEQ/L (3.5-5.1); SODIUM LEVEL 142 MEQ/L (136-145); TOTAL PROTEIN 6.9 GM/DL (6.4-8.2)
[2020-05-16] MEDS ORDERED: BUPIVACAINE HCL 0.25% 30ML VIAL As Ordered ONE (15:00)
[2020-05-16] MEDS ORDERED: METHYLENE BLUE 0.5% (5MG/ML) 10 ML AMP (PROVAYBLUE) As Ordered ONE (15:00)
[2020-05-16] MEDS ORDERED: CARBOPROST TROMETHAMINE 250 MCG/ML AMP As Ordered ONE (15:01)
[2020-05-16] MEDS ORDERED: METHYLERGONOVINE MALEATE 0.2 MG/ML VIAL (J2210) As Ordered ONE (15:01)
--- NOTE | 2020-05-16 15:02 | REPVR ---
PROCEDURE INFORMATION: Exam: US First Trimester, Transabdominal and US , Transvaginal Exam date and time: 05/16/2020 2:38 PM Age: 30 years old Clinical indication: Pain and condition or disease; Lmp or gestational age (weeks): 6; Other: Ectopic; complicated by abdominal or pelvic pain; Lower; First trimester; Gestational age or lmp: 7; 5th ; ; Additional info: Ectopic TECHNIQUE: Imaging protocol: Real-time transabdominal obstetrical ultrasound of the maternal pelvis and a first trimester , less than 14 weeks 0 days, with image documentation. Transvaginal imaging was used for better evaluation of the fetus, adnexa, and/or cervix. COMPARISON: 1ST TRIMESTER US 05/16/2020 10:12 AM FINDINGS: Gestation: No intrauterine gestational sac. The previously visualized right cornual ectopic is no longer identified. Embryonic/ heart rate: N/A Placenta: N/A Amniotic fluid: N/A BIOMETRY: Gestational age (AUA): N/A MATERNAL: Uterus: The uterus measures 8.1 x 4.4 x 4.2 cm. Cervix: Unremarkable. Right adnexa: Right ovary was not visualized. Left adnexa: 2.2 cm left ovarian corpus luteum cyst. Positive left ovarian blood flow. Intraperitoneal space: Large amount of complex fluid within the pelvis, new since prior. Findings are compatible with hemoperitoneum. IMPRESSION: New large amount of hemoperitoneum and nonvisualization of the right cornual ectopic . Findings are compatible with interval rupture of the ectopic . THIS REPORT CONTAINS FINDINGS THAT MAY BE CRITICAL TO PATIENT CARE. The findings were verbally communicated via telephone conference with BRIAN MANCILLA at 3:01 PM EDT on 05/16/2020. The findings were acknowledged and understood. Electronically signed by: Rosenda Russell On 05/16/2020 15:01:50 PM
[2020-05-16] MEDS ORDERED: ACET-683 PO (15:22)
[2020-05-16] MEDS ORDERED: SILVER NITRATE APPLICATOR As Ordered ONE (16:05)
[2020-05-16] MEDS ORDERED: SUGAMMADEX SODIUM 500 MG/5 ML VIAL (BRIDION) As Ordered ONE (16:25)
[2020-05-16] MEDS ORDERED: propofoL 200 MG/20 ML VIAL As Ordered ONE (16:25)
[2020-05-16] MEDS ORDERED: ROCURONIUM BROMIDE 50 MG/5 ML VIAL As Ordered ONE ×2 (16:25→16:38)
[2020-05-16] MEDS ORDERED: METOCLOPRAMIDE INJ 10MG/2ML VIAL (J2765 PER 1) As Ordered ONE (16:25)
[2020-05-16] MEDS ORDERED: dexameTHASONE 4 MG/ML 1ML VIAL (J1100 PER 1MG) As Ordered ONE (16:25)
[2020-05-16] MEDS ORDERED: fentaNYL 250 MCG/5 ML INJECTION (J3010) As Ordered ONE (16:25)
[2020-05-16] MEDS ORDERED: LIDOCAINE 2% 100MG/5ML SDV (FOR ANES.) As Ordered ONE (16:25)
[2020-05-16] MEDS ORDERED: SUCCINYLCHOLINE 100 MG/5 ML SYRINGE (J0330) As Ordered ONE (16:25)
[2020-05-16] MEDS ORDERED: ONDANSETRON 4MG/2ML VIAL As Ordered ONE (16:25)
[2020-05-16] MEDS ORDERED: KETOROLAC 60MG 2ML VIAL As Ordered ONE (16:25)
[2020-05-16] MEDS ORDERED: MIDAZOLAM INJ 2MG/2ML VIAL (J2250 PER 1MG) As Ordered ONE (16:25)
[2020-05-16] MEDS ORDERED: ACETAMINOPHEN 1000MG 100ML IV BTL (OFIRMEV) (J0131 PER 10MG) As Ordered ONE (16:26)
[2020-05-16] MEDS ORDERED: PHENYLephrine HCL 500 MCG/5 ML (100MCG/ML) SYRINGE (J2370) As Ordered ONE (16:32)
[2020-05-16] MEDS ORDERED: BUPIVACAINE/EPIN 0.5% 30 ML VIAL As Ordered ONE (17:22)
[2020-05-16] MEDS ORDERED: PERC5TAB12 PO (17:56)
[2020-05-16] MEDS ORDERED: fentaNYL 100 MCG/2 ML INJECTION (J3010) As Ordered ONE (17:59)
[2020-05-16] MEDS ORDERED: SIMETHICONE 80 MG CHEW TAB PO SCH (18:00)
[2020-05-16] MEDS: fentaNYL 100 MCG/2 ML INJECTION (J3010) IV PRN ×2 (18:01→18:07)
[2020-05-16] MEDS ORDERED: oxyCODONE 5MG TAB As Ordered ONE (18:23)
[2020-05-16] MEDS ORDERED: PERCOCET 5MG/325MG TAB PO PRN (18:30)
[2020-05-16] MEDS ORDERED: oxyCODONE 5MG TAB PO PRN (18:30)
[2020-05-16] MEDS ORDERED: LR 1,000 ML IV SCH (18:30)
[2020-05-16] MEDS ORDERED: ONDANSETRON 4MG/2ML VIAL IV PRN (18:30)
[2020-05-16 19:31] VITALS: BP 96/63
[2020-05-16] MEDS ORDERED: IBUPROFEN 800 MG TAB PO SCH (22:00)
--- NOTE | 2020-05-17 10:18 | RO ---
DATE OF OPERATION: 05/16/2020 INDICATIONS: The patient is a 30-year-old female with prior history of ectopic who is status post right salpingectomy. However, she became again with what appears to be a that got implanted on the right cornual area. After presenting to the emergency room with acute abdominal pain and treatment with Methotrexate, the decision was made to proceed with operative laparoscopy. PREOPERATIVE DIAGNOSES: * Acute abdominal pain. * Right cornual ruptured ectopic . POSTOPERATIVE DIAGNOSES: * Acute abdominal pain. * Right cornual ruptured ectopic . * Large hemoperitoneum. PROCEDURES: * Operative laparoscopy. * Removal of right cornual ectopic and repair of uterus. * Evacuation of large hemoperitoneum. ANESTHESIA: General. SURGEON: Branden Scott DO COMPLICATIONS: None. ESTIMATED BLOOD LOSS: Operative blood loss 150 mL, hemoperitoneum 800 mL. SPECIMEN SENT TO THE LAB: Right ruptured cornual ectopic tissue. PROCEDURE: After obtaining informed consent the patient was taken to the operating room where general anesthetic was found to be adequate. She was then prepped and draped in usual sterile fashion in dorsal lithotomy position. At this point Porras catheter was placed in the bladder for drainage. Uterine manipulator was placed. We then turned our attention to the abdomen where 10 mm infraumbilical incision was made. Using the Veress needle the abdomen was insufflated with CO2 gas to approximately 3.5 liters. We then placed a 10 mm right lateral portal. At this point the pelvis was inspected as well as the abdomen. A large hemoperitoneum was found. Using the large suction device the hemoperitoneum was evacuated, the belly completely suctioned out. We were then able to see the right ruptured cornual ectopic abutting out of the uterus. The right fallopian tube was gone from prior right salpingectomy. The left tube and ovary appeared to be within normal limits. The right ovary appeared to be within normal limits. At this point using YUDY Harmonic scalpel, we were able to remove the ectopic from the uterus leaving large crater onto the uterus. The surface of that crater was found to be oozing. Using the YUDY Harmonic the crater of the uterus was then coagulated. LigaSure was also used to further coagulate the crater where the ectopic was removed. The uterus was found to be stable at this point, no evidence of bleeding. We then applied Cesia over the area where the cornual was. Good hemostasis was noted. All instruments removed. Laparoscopic ports were closed using #0 Vicryl. Dermabond placed on the skin. 0.25% Marcaine placed. The patient tolerated the procedure well, she was transferred to recovery room in stable condition. NATTY
== END 2020-05-16 19:32 | disposition home or self-care (01) ==
LOC: M ED 13:22 → M SDC 13:23
PROVIDERS: ATTEND Obstetrics & Gynecology
DX: O00.90 Unspecified ectopic pregnancy without intrauterine pregnancy (principal); K66.1 Hemoperitoneum
CPT/HCPCS: 59150; 76801; 76817; 80048; 80076; 81001; 83605; 83690; 85025; 86850; 86900; 86901; 86920; 88305; 93041; 93976; 96361; 96374; 96375; 99285; J0131; J0330; J1100; J1885; J2250; J2270; J2370; J2405; J2765; J3010; U0002

== ENCOUNTER → 2020-06-07 | Outpatient (REF) | payer OTHER ==
[~2020-06-07] MED LIST changes: +ACET-683 PO
== END ==
LOC: M SFHCADAM 13:52
PROVIDERS: ATTEND Physician Assistant Medical
DX: R10.2 Pelvic and perineal pain (principal); O00.80 Other ectopic pregnancy without intrauterine pregnancy; N83.202 Unspecified ovarian cyst, left side

== ENCOUNTER → 2020-06-10 | Outpatient (CLI) | payer BC ==
--- NOTE | 2020-06-10 15:06 | REP ---
INDICATION: O00.80 OTH ECTOPIC PREG,R10.2 PELVIC PAIN,N83.202 CYST LT OV. Prior history of right cornual ectopic. COMPARISON: None. TECHNIQUE: Transabdominal and transvaginal scanning were performed. FINDINGS: Uterine dimensions are normal at 8.5 x 3.8 x 5.1 cm. Endometrial echo is 1.05 cm thick and centrally placed. No free fluid is seen in the cul-de-sac. Visualized bladder knox are smooth. There is focal thinning of the anterior myometrium at the junction of the uterine body and lower uterine segment question prior section scar. The right ovary has dimensions of 2.8 x 2.3 x 2.8 cm. It's Doppler flow is normal with a resistive index of 0.41. There is a 1.2 cm hypoechoic cyst in the right ovary consistent with a follicle. The left ovary dimensions are normal as well at 3.5 x 2.3 x 2.5 cm. It's Doppler flow was normal with resistive index of 0.35. There is a 1.8 cm hypoechoic follicle in the left ovary. IMPRESSION: Question prior Caesarean section scar lower uterine segment anteriorly. Otherwise negative pelvic sonography.. <Electronically signed by Steve Nielsen > 06/10/20 [id number]
== END ==
LOC: M WHC 13:28
PROVIDERS: ATTEND Physician Assistant Medical
DX: R10.2 Pelvic and perineal pain (principal); N83.202 Unspecified ovarian cyst, left side

== ENCOUNTER → 2021-04-07 | Outpatient (REF) | payer OTHER ==
[2021-04-07 16:36] LABS: APPEARANCE, URINE CLEAR (CLEAR); BACTERIA, URINE AUTO NEGATIVE (NEGATIVE); BILIRUBIN, URINE AUTO NEGATIVE (NEGATIVE); BLOOD, URINE BLOOD NEGATIVE (NEGATIVE); COLOR, URINE STRAW (YELLOW); GLUCOSE, URINE (UA) AUTO NEGATIVE (NEGATIVE); KETONE, URINE AUTO NEGATIVE (NEGATIVE); LEUKOCYTE ESTERASE, URINE AUTO NEGATIVE (NEGATIVE); NITRITE, URINE AUTO NEGATIVE (NEGATIVE); PROTEIN, URINE AUTO NEGATIVE (NEGATIVE); RBC, URINE AUTO 0 /HPF (0-3); SPECIFIC GRAVITY URINE AUTO 1.003 (1.002-1.035); SQUAMOUS EPITHELIAL CELL UR AU 0 /HPF (0-6); UROBILINOGEN, URINE AUTO 0.2 mg/dL (0.0-2.0); WBC, URINE AUTO 0 /HPF (0-3)
== END ==
LOC: M SFHCADAM 15:05
PROVIDERS: ATTEND Physician Assistant Medical
DX: R10.12 Left upper quadrant pain (principal); R10.84 Generalized abdominal pain

== ENCOUNTER → 2021-04-19 | Outpatient (CLI) | payer BC, OTHER ==
[~2021-04-19] MED LIST changes: +GASTROGRAFIN SOLUTION 30ML (Q9963) As Ordered ONE; +ISOVUE-370 76% 100ML VIAL As Ordered ONE
--- NOTE | 2021-04-19 12:40 | REP ---
INDICATION: LUQ PAIN, GENERALIZED ABD PAIN. COMPARISON: None. TECHNIQUE: Oral contrast was administered. CT abdomen performed without IV contrast. CT abdomen and pelvis performed with the intravenous administration of 100 cc of Isovue 370. Sagittal and coronal reconstruction images are performed. FINDINGS: Lung bases: There is a small hiatal hernia. Liver: Normal Gallbladder: Unremarkable. Spleen: Normal. Adrenals: Normal. Pancreas: Normal. Kidneys: Normal. Small and large bowel: Unremarkable. Free fluid: None. Abdominal aorta: No aneurysm or dissection. Adenopathy: None. Appendix: Not inflamed. Osseous structures: Unremarkable. Pelvis: No mass. IMPRESSION: Small hiatal hernia. <Electronically signed by Corona Potter > 04/19/21 [id number]
== END ==
LOC: M RAD 09:01
PROVIDERS: ATTEND Physician Assistant Medical
DX: R10.12 Left upper quadrant pain (principal); R10.84 Generalized abdominal pain; K44.9 Diaphragmatic hernia without obstruction or gangrene
CPT/HCPCS: 74178; Q9963; Q9967

== ENCOUNTER → 2024-12-09 | Outpatient (REF) | payer BC ==
[~2024-12-09] MED LIST changes: -GASTROGRAFIN SOLUTION 30ML (Q9963) As Ordered ONE; -ISOVUE-370 76% 100ML VIAL As Ordered ONE
[2024-12-09 14:08] LABS: BASO % 0.5 % (0.0-1.0); EOS # 0.2 10^3/uL (0.0-0.5); EOS % 2.7 % (0.0-3.0); HEMATOCRIT 44.7 % (36.0-47.0); LYMPH # 2.8 10^3/uL (1.5-5.0); LYMPH % 37.3 % (24.0-44.0); MEAN CORPUSCULAR HEMOGLOBIN 30.5 pg (27.0-33.0); MEAN CORPUSCULAR HGB CONC 33.6 g/dl (32.0-36.5); MONO # 0.6 10^3/uL (0.0-0.8); MONO % 8.4 % (2.0-8.0); NEUTROPHILS # 3.7 10^3/uL (1.5-8.5); NEUTROPHILS % 50.8 % (36.0-66.0); PLATELET COUNT, AUTOMATED 290 10^3/uL (150-450); RED BLOOD COUNT 4.91 10^6/uL (4.00-5.40); WHITE BLOOD COUNT 7.4 10^3/uL (4.0-10.0)
[2024-12-09 14:14] LABS: THYROID STIMULATING HORMONE 1.242 uIU/ML (0.55-4.78)
[2024-12-09 14:15] LABS: ALBUMIN 4.2 G/DL (3.2-5.2); ALKALINE PHOSPHATASE 63 U/L (35-104); ALT/SGPT 25 U/L (7.0-40); AST/SGOT 18 U/L (<34); BILIRUBIN,TOTAL 1.1 MG/DL (0.3-1.2); BLOOD UREA NITROGEN 11 MG/DL (9-23); CALCIUM LEVEL 9.4 MG/DL (8.5-10.1); CARBON DIOXIDE LEVEL 27 MMOL/L (20-31); CHLORIDE LEVEL 107 MMOL/L (98-107); CHOLESTEROL LEVEL 195 MG/DL (<200); CREATININE FOR GFR 0.79 MG/DL (0.55-1.30); GLOMERULAR FILTRATION RATE > 90.0 (>60); GLUCOSE, FASTING 94 MG/DL (60-100); HDL CHOLESTEROL 57.3 MG/DL (>40); LDL CHOLESTEROL 114.9 MG/DL (<100); NON-HDL-C 137.7 MG/DL; POTASSIUM SERUM 4.6 MMOL/L (3.5-5.1); SODIUM LEVEL 142 MMOL/L (136-145); TOTAL PROTEIN 7.2 G/DL (5.7-8.2); TRIGLYCERIDES LEVEL 114 MG/DL (<150)
[2024-12-09 14:16] LABS: TOTAL 25(OH) VITAMIN D 14.5 NG/ML (20.0-100.0)
== END ==
LOC: M SFHCADAM 07:31
PROVIDERS: ATTEND Physician Assistant Medical
DX: Z00.00 Encounter for general adult medical examination without abnormal findings (principal); Z13.220 Encounter for screening for lipoid disorders; Z13.0 Encounter for screening for diseases of the blood and blood-forming organs and certain disorders involving the immune mechanism; Z13.29 Encounter for screening for other suspected endocrine disorder; Z13.21 Encounter for screening for nutritional disorder

== ENCOUNTER → 2024-12-09 | Outpatient (CLI) | payer BC | LOC: M ADAMS 07:31 | PROVIDERS: ATTEND Physician Assistant Medical | DX: M25.561 Pain in right knee (principal); M54.50 Low back pain, unspecified ==

== ENCOUNTER → 2025-06-16 | Outpatient (REF) | payer BC | LOC: M SFHCADAM 07:34 | PROVIDERS: ATTEND Physician Assistant Medical | DX: E55.9 Vitamin D deficiency, unspecified (principal) ==